=== PATIENT | female | born 1995 | race Two or more races ===

== ENCOUNTER → 2017-06-04 | Outpatient (REF) | payer BC ==
[~2017-06-04] MED LIST: ALLE180T33 PO; AZUR1TAB PO; CLAR10CA3 PO; EFFE37.527 PO; FLON0.054; FLOVENT INH; MUCI600T37 PO; ONETAB PO; TRAZO50TA PO; VENL150C43 PO; XARE15TA PO; atarax PO
[2017-06-04 18:51] LABS: MEAN CORPUSCULAR HEMOGLOBIN 27.6 pg (27.0-33.0); MEAN CORPUSCULAR VOLUME 81.1 fl (80.0-96.0); RED CELL DISTRIBUTION WIDTH 12.1 % (11.5-14.5); WHITE BLOOD COUNT 7.5 K/mm3 (4.0-10.0)
[2017-06-04 19:26] LABS: ALBUMIN 3.8 GM/DL (3.2-5.2); ALBUMIN/GLOBULIN RATIO 1.23 (1.00-1.93); ALKALINE PHOSPHATASE 94 U/L (45-117); ALT/SGPT 22 U/L (12-78); ANION GAP 10 MEQ/L (8-16); AST/SGOT 14 U/L (15-37); BILIRUBIN,TOTAL 0.4 MG/DL (0.2-1.0); BLOOD UREA NITROGEN 9 MG/DL (7-18); CALCIUM LEVEL 9.2 MG/DL (8.5-10.1); CARBON DIOXIDE LEVEL 27 MEQ/L (21-32); CHLORIDE LEVEL 103 MEQ/L (98-107); CREATININE FOR GFR 0.67 MG/DL (0.55-1.02); FREE T4 1.14 NG/DL (0.76-1.46); GLOMERULAR FILTRATION RATE > 60.0 (>60); GLUCOSE, FASTING 85 MG/DL (70-105); POTASSIUM SERUM 4.8 MEQ/L (3.5-5.1); SODIUM LEVEL 140 MEQ/L (136-145); TOTAL PROTEIN 6.9 GM/DL (6.4-8.2)
== END ==
LOC: M SFHCADAM 14:13
PROVIDERS: ATTEND Family Medicine
DX: F32.2 Major depressive disorder, single episode, severe without psychotic features (principal)

== ENCOUNTER 2017-07-28 13:33 | Inpatient (IN) | payer BC ==
[~2017-07-28] VITALS: Ht 160 cm; Wt 90.0 kg
[~2017-07-28 13:33] MED LIST changes: -ALLE180T33 PO; -EFFE37.527 PO; -TRAZO50TA PO; -VENL150C43 PO; -atarax PO
[2017-07-28] MEDS ORDERED: EFFE37.527 PO (13:48)
[2017-07-28 16:02] LABS: METHADONE URINE NEGATIVE (NEGATIVE)
[2017-07-28 16:03] LABS: MEAN CORPUSCULAR HEMOGLOBIN 28.3 pg (27.0-33.0); MEAN CORPUSCULAR HGB CONC 36.1 g/dl (32.0-36.5); MEAN CORPUSCULAR VOLUME 78.4 fl (80.0-96.0); RED CELL DISTRIBUTION WIDTH 11.7 % (11.5-14.5); WHITE BLOOD COUNT 9.3 K/mm3 (4.0-10.0)
[2017-07-28 16:11] LABS: ALBUMIN/GLOBULIN RATIO 1.18 (1.00-1.93); ALKALINE PHOSPHATASE 97 U/L (45-117); ALT/SGPT 26 U/L (12-78); ANION GAP 9 MEQ/L (8-16); AST/SGOT 18 U/L (15-37); BILIRUBIN,DIRECT 0.1 MG/DL (0.0-0.2); BILIRUBIN,TOTAL 0.4 MG/DL (0.2-1.0); BLOOD UREA NITROGEN 7 MG/DL (7-18); CALCIUM LEVEL 9.2 MG/DL (8.5-10.1); CARBON DIOXIDE LEVEL 26 MEQ/L (21-32); CHLORIDE LEVEL 108 MEQ/L (98-107); CREATININE FOR GFR 0.68 MG/DL (0.55-1.02); GLOMERULAR FILTRATION RATE > 60.0 (>60); GLUCOSE, FASTING 91 MG/DL (70-105); POTASSIUM SERUM 4.4 MEQ/L (3.5-5.1); SODIUM LEVEL 143 MEQ/L (136-145); TOTAL PROTEIN 7.4 GM/DL (6.4-8.2)
[2017-07-28] MEDS ORDERED: ALLE180T33 PO (18:56)
[2017-07-28] MEDS ORDERED: VENL150C43 PO (18:56)
[2017-07-28] MEDS ORDERED: ACETAMINOPHEN TAB 650MG DOSE (2X325MG) PO ONE (19:45)
[2017-07-28 21:30] VITALS: BP 123/82
[2017-07-28] MEDS ORDERED: ACETAMINOPHEN TAB 650MG DOSE (2X325MG) PO PRN (22:15)
[2017-07-28] MEDS ORDERED: MAALOX 30 ML SUSP *UDC PO PRN (22:15)
[2017-07-28] MEDS ORDERED: MOM 30ML SUSPENSION UDC PO PRN (22:15)
[2017-07-29 06:59] VITALS: BP 122/64
[2017-07-29] MEDS: FEXOFENADINE 60 MG TAB PO SCH (09:12)
[2017-07-29] MEDS: VENLAFAXINE **XR** 75MG CAPSULE PO SCH (09:13)
[2017-07-29] MEDS ORDERED: ALBUTEROL 90 MCG/ACT 8GM HFA INHALER INH PRN (10:00)
--- NOTE | 2017-07-29 10:02 | HPEPDOC ---
[facility] Medical History & Physical Date of Admission Jul 29, 2017 History and Physical PCP: Falguni LEONARDO ATTENDING: Dr. Rafael Ludwig HPI: 22 yo F admitted to [facility] for major depressive disorder, being medically examined today. No acute medical complaints today. Denies any fevers, chills, weakness, fatigue, MCGRAW, CP, SOB, cough, palpitations, abdominal pain, N/V/D or changes in bowel or bladder habits. 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 ROS: As noted in HPI, otherwise 11pt ROS of systems reviewed and remarkable only for LMP unknown per patient. PE: GEN: 22 yo F, appears stated age. Well-nourished, well developed. No acute distress. Alert and oriented x 3. Pleasant, interactive. HEENT: Normocephalic, atraumatic. Pupils are equal, round, and reactive to light. Extraocular movements are intact. No nystagmus appreciated. Sclera are nonicteric. Conjunctiva without injection. Nose midline. Nasal turbinates without bogginess. EACs both patent BL. TMs both visualized and frank with good cone of light, no bulging or erythema. No facial asymmetry. Moist mucous membranes. Dentition fair. Pharynx pink and moist, no cobblestoning. Neck supple , trachea midline. No lymphadenopathy or thyromegaly appreciated. CHEST: Regular rate and rhythm, +S1, +S2 LUNGS: Clear to auscultation bilaterally. No wheezes, rales, or rhonchi. Breathing appears symmetric and easy. Patient is speaking in full sentences. No accessory muscle use. ABD: Round, soft, non-tender, non-distended. +Bowel sounds throughout. No rebound or guarding. No costovertebral angle tenderness. EXT: Pulses 2+ bilaterally dorsalis pedis and radial. No lower extremity edema appreciated. SKIN: [place], dry, warm. Capillary refill <2sec. No rashes. NEURO: Alert and oriented x 3. Cranial nerves III-XII are intact. No focal deficits appreciated. EKG: pending. A&P: 22 yo F admitted to [facility] for major depressive disorder 1. Psych. Plan per Psychiatry. Obtain baseline EKG to assure the safety of psychiatric medications as they can prolong the QT interval. 2. Allergic rhinitis. Continue Katherine 180 mg by mouth daily. 3. History of allergy-induced asthma. Albuterol HFA 2 puffs every 4 hours as needed. 4. Follow up with PCP on discharge. 5. History of vitamin D deficiency. Recheck vitamin D level. 6. History of bilateral PE on OCP. 7. Add hCG to admission labs. 8. Staff member Coleen MCCARTY present throughout exam. Vital Signs Vital Signs Date Time Temp Pulse Resp B/P (MAP) Pulse Ox O2 Delivery O2 Flow Rate FiO2 07/29/17 06:59 97.5 75 16 122/64 (83) Room Air 07/28/17 21:07 98 Laboratory Data Labs 24H Laboratory Tests 2 07/28/17 15:20: Anion Gap 9, Glomerular Filtration Rate > 60.0, Calcium Level 9.2, Aspartate Amino Transf (AST/SGOT) 18, Alanine Aminotransferase (ALT/SGPT) 26, Alkaline Phosphatase 97, Total Bilirubin 0.4, Direct Bilirubin 0.1, Total Protein 7.4, Albumin 4.0, Albumin/Globulin Ratio 1.18, Thyroid Stimulating Hormone (TSH) 1.400, Salicylates Level < 1.7L, Urine Amphetamines Screen NEGATIVE, Urine Benzodiazepines Screen NEGATIVE, Urine Opiates Screen NEGATIVE, Urine Methadone Screen NEGATIVE, Acetaminophen Level < 2.0L, Urine Barbiturates Screen NEGATIVE , Urine Phencyclidine Screen NEGATIVE, Urine Cocaine Metabolite Screen NEGATIVE , Urine Cannabinoids Screen NEGATIVE, Ethyl Alcohol Level < 0.003 CBC/BMP Laboratory Tests 07/28/17 15:20 Red Blood Count 5.17, Mean Corpuscular Volume 78.4 L, Mean Corpuscular Hemoglobin 28.3, Mean Corpuscular Hemoglobin Concent 36.1, Red Cell Distribution Width 11.7 Home Medications Scheduled Fexofenadine Hydrochloride (Katherine Allergy) 180 Mg Tab, 180 MG PO DAILY Venlafaxine Hydrochloride (Venlafaxine HCl ER) 150 Mg Cap, 150 MG PO DAILY Allergies Coded Allergies: Penicillins (Unverified Allergy, Unknown, RASH, 07/28/17) Penicillins Cross Reactors (Unverified Allergy, Unknown, RASH, 07/28/17) Mary Mendez Jul 29, 2017 10:02
[2017-07-29 10:54] LABS: CONTROL LINE HCG INT CTR LINE PRESENT
--- NOTE | 2017-07-29 11:42 | MHHPEPDOC ---
[facility] History & Physical History and Physical DATE OF ADMISSION: Jul 28, 2017 at 18:24 LEGAL STATUS AT ADMISSION: 9.39 CHIEF COMPLAINT: none, shrugs shoulders HISTORY OF THE PRESENT ILLNESS: Patient is a 22-year-old female, who presented to Dr. Palencia's office yesterday at [facility]. She stated 3 weeks ago she cut herself on her stomach and arms and had thoughts of suicide. He called the ambulance and she was admitted. She was not forthcoming in the ED with information about herself. This is her first psychiatric admission. On interview today she is very guarded and withholding information. Davey not answer questions. Answers with "it depends" and shrugs her shoulders saying "I don't know". Talks to the wall not the press writer. Starts to cry when asked about her mother. States her mother is mad at her for being here. Refuses to sign GABRIELE so press writer may contact mother. Pt asks for discharge. Crying and say's "I want to go home". Explained to pt that she is in need of help if she is hurting herself and we want to do everything we can to help her. We want her to be safe and we will need much more information to develop a safe discharge plan for her. That by not talking she is actually making the process of proceeding to discharge longer. She cries and turns away saying "I want to go home". Of importance that pt would provide is information that she was raised by her grandparents until the age of 7. She says her mother was in and then joined the [employer]. Mother obviously left Adrianne in the care of her parents. No information on father. Adrianne oneil has 2 brothers and 1 sister. She is the oldest. She graduated . Obtained a BS degree in Biology at [employer] and is currently in nursing school at [employer]. 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 She denies having any friends. Denies having a Boyfriend. Says she enjoys writing poems. In terms of insight into her distress she says she does not like herself and this includes everything about herself. She thinks she is ugly. She wants to change everything about herself. She says she cuts herself because "I just get upset". PSYCHIATRIC REVIEW OF SYSTEMS: Affective: crying Anxiety: high Trauma: denies Psychosis: denies Personally: guarded, withholding PAST PSYCHIATRIC HISTORY: Prior Psychiatric Disorder: needs further assessment Outpatient Treatment: Dr.Kahn Rupert Suicidal/Self injurious: cutting self since age 11, reports it has happened 4 times. Psychotropic Medication History: Effexor ALLERGIES: Please see below. FAMILY PSYCHIATRIC HISTORY: denies SOCIAL HISTORY: Early Relations/development: raised by Grand parents while mother served in the Army, no information provided on Father. Sibling order: Oldest of 4 Paternal relationships: mom and step-dad-"mom mad because I am in here and I should be in school and no one to care for my cat". 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 PAST MEDICAL/SURGICAL HISTORY: PMHx: Allergic rhinitis History of allergy-induced asthma Vitamin D deficiency Bilateral PE on OCP 11/22 PSHX: [place] teeth extraction EKG: pending. A&P: 22 yo F admitted to [facility] for major depressive disorder 1. Psych. Plan per Psychiatry. Obtain baseline EKG to assure the safety of psychiatric medications as they can prolong the QT interval. 2. Allergic rhinitis. Continue Katherine 180 mg by mouth daily. 3. History of allergy-induced asthma. Albuterol HFA 2 puffs every 4 hours as needed. 4. Follow up with PCP on discharge. 5. History of vitamin D deficiency. Recheck vitamin D level. 6. History of bilateral PE on OCP. 7. Add hCG to admission labs. VITAL SIGNS: Temperature 97.5 pulse respiratory rate 75, blood pressure 122/64 , pulse oximetry 98% on room air. MENTAL STATUS EXAMINATION: General appearance: Patient is a 22-year old female, who is over weight, dressed in hospital attire, shoulder length dark hair, fair complexion, crying, poor eye contact, uncooperative with questions. Speech: spontaneous, monosyllables. Thought processes: linear, no thought disorder , no delusions, FOI or IOR Thought content: appropriate Abstract reasoning and computation: good. Description of associations: fair. Description of abnormal or psychotic thoughts: denies suicidal thoughts at this time, no psychotic symptoms, pt refuses to provide meaningful information, will not respond to questions, says "I don't know". Judgment: poor Insight: poor. Orientation: oriented to place, time, person and surroundings. Recent and remote memory: unclear as pt is evasive. Attention span and concentration: appears good. Fund of knowledge: Full Mood: depressed Affect: congruent DIAGNOSES: Depressive disorder unspecified self-mutilation ASSESSMENT: pt reports sleep varies depending on work schedule. She will get 2 hours some nights, 8 hours or 12 hours., pt reports good energy, reports fluctuation in appetite without weight changes. Pt denies psychomotor changes and none observed. Pt would not cooperate with any further questioning. PROBLEM LIST: 1. risk for self-injury 2. depression 3. ineffective coping INITIAL TREATMENT PLAN: 1. Patient was admitted on a 9.39 2. Complete history was obtained. 3. With patients permission, family will be contacted and database will be expanded. 4. Patients medication regimen will be reviewed and changed accordingly. 5. Patient will be provided with protected environment. 6. Patient will be treated with individual, group, and milieu therapies. 7. Patient will receive supportive psych-education. 8. Discharge planning will commence immediately. 9. Outpatient follow-up treatment will be strongly recommended. 10. The initial treatment plan will focus initially on: * see problem list ESTIMATED LENGTH OF STAY: 7-10 DAYS. TIME SPENT COUNSELING AND COORDINATING INITIAL CARE: 50 minutes. Laboratory Data 24H Labs Laboratory Tests 2 07/28/17 15:20: Anion Gap 9, Glomerular Filtration Rate > 60.0, Calcium Level 9.2, Aspartate Amino Transf (AST/SGOT) 18, Alanine Aminotransferase (ALT/SGPT) 26, Alkaline Phosphatase 97, Total Bilirubin 0.4, Direct Bilirubin 0.1, Total Protein 7.4, Albumin 4.0, Albumin/Globulin Ratio 1.18, 25-Hydroxy Vitamin D Total 15.1L, Thyroid Stimulating Hormone (TSH) 1.400, Human Chorionic Gonadotropin, Qual NEGATIVE, Salicylates Level < 1.7L, Urine Amphetamines Screen NEGATIVE, Urine Benzodiazepines Screen NEGATIVE, Urine Opiates Screen NEGATIVE, Urine Methadone Screen NEGATIVE, Acetaminophen Level < 2.0L, Urine Barbiturates Screen NEGATIVE , Urine Phencyclidine Screen NEGATIVE, Urine Cocaine Metabolite Screen NEGATIVE , Urine Cannabinoids Screen NEGATIVE, Ethyl Alcohol Level < 0.003 CBC/BMP Laboratory Tests 07/28/17 15:20 Red Blood Count 5.17, Mean Corpuscular Volume 78.4 L, Mean Corpuscular Hemoglobin 28.3, Mean Corpuscular Hemoglobin Concent 36.1, Red Cell Distribution Width 11.7 Medications Scheduled Fexofenadine Hydrochloride (Katherine Allergy) 180 Mg Tab, 180 MG PO DAILY, ( Reported) Venlafaxine Hydrochloride (Venlafaxine HCl ER) 150 Mg Cap, 150 MG PO DAILY, ( Reported) Allergies Coded Allergies: Penicillins (Unverified Allergy, Unknown, RASH, 07/28/17) Penicillins Cross Reactors (Unverified Allergy, Unknown, RASH, 07/28/17) Rafaela Darby Jul 29, 2017 11:42
[2017-07-29] MEDS: VITAMIN D 1,000 INTERNATIONAL UNITS TABLET PO SCH (13:00)
[2017-07-29 18:00] VITALS: BP 117/76
--- NOTE | 2017-07-29 19:57 | ECGEPIP ---
Stationary ECG Study [facility] Test Date: 2017-07-29 Pat Name: DORIS DENIS Department: Room: [place] [address] Gender: F Database Programmer Analyst: CARY : 1995 Requested By: Mary Mendez Order Number: [id number] Reading MD: Damon Owusu Measurements Intervals [place] Rate: 76 P: 38 IA: 132 QRS: -20 QRSD: 97 T: 30 QT: 382 QTc: 430 Interpretive Statements Normal sinus rhythm with sinus arrhythmia Leftward axis No significant change when compared to prior tracing of 11/20/2014 Electronically Signed On 07-29-2017 19:56:52 EDT by Damon Owusu
[2017-07-29] MEDS: traZODone 50 MG TAB PO PRN (21:52)
[2017-07-30 06:00] VITALS: BP 112/66
[2017-07-30] MEDS: VITAMIN D 1,000 INTERNATIONAL UNITS TABLET PO SCH (08:33)
[2017-07-30] MEDS: FEXOFENADINE 60 MG TAB PO SCH (08:33)
[2017-07-30] MEDS: VENLAFAXINE **XR** 75MG CAPSULE PO SCH (08:34)
--- NOTE | 2017-07-30 11:01 | MHIPNPDOC ---
[facility] Progress Note Progress Note DATE OF SERVICE: 07/30/17 HISTORY: day 3 of admission for SI VITAL SIGNS: See below. NEW TEST RESULTS: na CURRENT MEDICATIONS: See below. MENTAL STATUS EXAMINATION: General appearance: Patient is a 22-year old female, who is over weight, dressed in hospital attire, shoulder length dark hair, fair complexion, good eye contact, cooperative. Speech: spontaneous, clear Thought processes: linear, no thought disorder , no delusions, FOI or IOR Thought content: appropriate Abstract reasoning and computation: good. Description of associations: good Description of abnormal or psychotic thoughts: denies suicidal thoughts at this time, no psychotic symptoms. Judgment: fair Insight: good Orientation: oriented to place, time, person and surroundings. Recent and remote memory: intact Attention span and concentration: good. Fund of knowledge: Full Mood: less depressed Affect: congruent DIAGNOSES: Depressive disorder unspecified self-mutilation ASSESSMENT:pt appears to have significant issues with low self-esteem. she appears willing to work on these issues both here and as an outpatient. she is very intelligent and ambitious and would benefit from counseling which she is scheduled for at [facility]. She is living by herself in [place] as Mom and family have relocated to [place]. She lives and works here and is able to identify a few supports in the area. We will contact her friend Belle for collateral information. Pt states she uses trazodone for sleep and it is effective for her. Pt scores depression as a 3/10 and anxiety as a 2/10 10 is the worse. MANAGEMENT PLAN: Effexor raised 3 weeks ago so needs additional time to reach maximum benefit. Will monitor safety, work on healthy coping skills and how to manage stress without self harm. pt is assigned homework by writer producer. She must identify 2 things she likes about herself. 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 She is also to identify 2 coping skills she can used when thoughts of self-harm occur to keep her safe. If she does well over the weekend we will plan discharge on Wednesday so she can get back to school and work. Pt has had contact with her nursing program about her hospitalization. We also supplied a note for her employer. Discharge meeting 10:30 on Wednesday with discharge to follow. TIME SPENT: 25 minutes. Vital Signs Vital Signs Date Time Temp Pulse Resp B/P (MAP) Pulse Ox O2 Delivery O2 Flow Rate FiO2 07/30/17 06:00 97.6 80 18 112/66 (81) 07/29/17 06:59 Room Air 07/28/17 21:07 98 Current Medications Current Medications Acetaminophen (Tylenol Tab) 650 mg Q6HP PRN PO HEADACHE or DISCOMFORT; Start at 22:15; Stop 08/27/17 at 22:14 Al Hydrox/Mg Hydrox/Simethicone (Mylanta) 30 ml Q4HP PRN PO HEARTBURN/ INDIGESTION; Start 07/28/17 at 22:15; Stop 08/27/17 at 22:14 Albuterol Sulfate (Proventil, Ventolin Hfa) 2 puff Q4HP PRN INH SHORTNESS OF BREATH; Start 07/29/17 at 10:00; Stop 08/28/17 at 09:59 Fexofenadine HCl (Katherine) 180 mg DAILY PO Last administered on 07/30/17 08:33 ; Start 07/29/17 at 09:00; Stop 08/28/17 at 08:59 Home Med (Med Rec Complete!) ASDIRECTED XX ; Start 07/28/17 at 19:00; Stop at 19:01; Status DC Magnesium Hydroxide (Milk Of Magnesia) 30 ml DAILYPRN PRN PO CONSTIPATION; Start 07/28/17 at 22:15; Stop 08/27/17 at 22:14 Trazodone HCl (Desyrel) 50 mg QHSP PRN PO INSOMNIA Last administered on 21:52; Start 07/28/17 at 22:15; Stop 08/27/17 at 22:14 Venlafaxine HCl (Effexor Xr) 150 mg DAILY PO Last administered on 08:34; Start 07/29/17 at 09:00; Stop 08/28/17 at 08:59 Vitamin D (Vitamin D) 2,000 units DAILY PO Last administered on 07/30/17 08:33 ; Start 07/29/17 at 09:00; Stop 08/28/17 at 08:59 Allergies Coded Allergies: Penicillins (Unverified Allergy, Unknown, RASH, 07/28/17) Penicillins Cross Reactors (Unverified Allergy, Unknown, RASH, 07/28/17) Rafaela Darby Jul 30, 2017 11:01
[2017-07-30 11:56] VITALS: BP 99/64
[2017-07-30 18:23] VITALS: BP 118/64
[2017-07-30] MEDS: traZODone 50 MG TAB PO PRN (22:49)
[2017-07-31 07:07] VITALS: BP 118/71
[2017-07-31] MEDS: VENLAFAXINE **XR** 75MG CAPSULE PO SCH (08:11)
[2017-07-31] MEDS: VITAMIN D 1,000 INTERNATIONAL UNITS TABLET PO SCH (08:11)
[2017-07-31] MEDS: FEXOFENADINE 60 MG TAB PO SCH (08:11)
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
[2017-07-31 18:17] VITALS: BP 102/57
[2017-07-31] MEDS: traZODone 50 MG TAB PO PRN (22:37)
[2017-08-01] MEDS: VITAMIN D 1,000 INTERNATIONAL UNITS TABLET PO SCH (08:14)
[2017-08-01] MEDS: VENLAFAXINE **XR** 75MG CAPSULE PO SCH (08:14)
[2017-08-01] MEDS: FEXOFENADINE 60 MG TAB PO SCH (08:14)
--- NOTE | 2017-08-01 13:23 | MHIPN ---
DATE: 08/01/2017 Ms. Christianson comes in with a slightly inappropriate smile, and I discussed her history of cutting. She stated she relied on it when upset and was copying other people. She continues to state she has impulse problems and included starting smoking. Her insight at this point seems somewhat limited compared to her dramatic self-destructive behavior. MENTAL STATUS: Speech is normal. No disturbance of thought process. No loose associations. No psychotic thoughts. Judgment and insight seem poor. Orientation in three spheres is present. No difficulties with recent or remote memory. Attention and concentration are good. No disturbance of language. Full fund of knowledge. Mood is pleasant. Affect is slightly inappropriate compared to her situation. IMPRESSION: Depression, not otherwise specified. Suggest evaluation of her IQ and continue treatment as per Rafaela Darby.
[2017-08-01 18:21] VITALS: BP 111/57
[2017-08-01] MEDS: traZODone 50 MG TAB PO PRN (23:05)
[2017-08-02 06:39] VITALS: BP 111/56
[2017-08-02] MEDS: VENLAFAXINE **XR** 75MG CAPSULE PO SCH (08:11)
[2017-08-02] MEDS: VITAMIN D 1,000 INTERNATIONAL UNITS TABLET PO SCH (08:11)
[2017-08-02] MEDS: FEXOFENADINE 60 MG TAB PO SCH (08:11)
[2017-08-02] MEDS ORDERED: hydrOXYzine 25 MG TAB PO PRN (09:15)
[2017-08-02] MEDS ORDERED: TRAZO50TA PO (09:18)
[2017-08-02] MEDS ORDERED: atarax PO (09:18)
--- NOTE | 2017-08-02 13:36 | MHDSPDOC ---
[facility] Discharge Summary Discharge Summary DATE OF ADMISSION: Jul 28, 2017 at 18:24 DATE OF DISCHARGE: Aug 02, 2017 at 11:58 DISCHARGE DIAGNOSES: Depressive disorder unspecified self-mutilation REASON FOR ADMISSION: Pt presented to her first outpatient appointment and told the doctor she cut herself in several places 3 weeks ago. She was unable to contract for safety and was sent here. CONSULTANTS INVOLVED: na TREATMENT AND PROGRESS ON THE UNIT : Initially pt would not provide any information. She just shrugged her shoulders and answered "I don't know". She wanted immediate discharge. When she realized that would not happen she started crying and refused to offer any information. Her intake process was delayed due to this. The following day she was more cooperative and shared what her thoughts were that were causing her so much distress. HOSPITAL COURSE: Pt suffers from a lack of self esteem and a distorted body image. She views herself as ugly when she is not. She is a bit overweight but certainly not ugly. She has obtained a Bachelor's in Science in Biology from [employer] and is pursing a nursing education at [employer]. She lives alone with her cat and works 2 jobs. 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 She fears she may have to file bankruptcy due to poor planning, budgeting an impulse buying. pt Slept well most nights and ate at most meals. No allergic reactions to medications. She participated in therapy groups and did well. She was able to provide a list of coping skills prior to discharge and she could identify things she actually liked about herself. She received a good deal of support and encouragement. She engaged appropriately with peers. DISCHARGE ASSESSMENT: Pt was not longer having thoughts of self harm prior to leaving the hospital. She could also tell us what she would do instead of harming herself if and when that thought returns to her. She has a copy of that list for herself. She has been in contact via phone with her Mother in [place] who is supportive of her. She states she "came out" as bisexual to her mother over the phone while her and her mother was accepting of her and loves her. This seemed to be comforting to Adrianne. She is aware of her follow up appts and is committed to following up as scheduled. She will take her medication as prescribed. No substance abuse concerns. MENTAL STATUS EXAMINATION ON DISCHARGE: General appearance: Patient is a 22-year old female, who is over weight, dressed in street clothes, shoulder length dark hair, fair complexion, good eye contact, smiling Speech: spontaneous, monosyllables. Thought processes: linear, goal directed Thought content: appropriate Abstract reasoning and computation: good. Description of associations: fair. Description of abnormal or psychotic thoughts: denies suicidal thoughts at this time, no psychotic symptoms. Judgment: fair Insight: fair Orientation: oriented to place, time, person and surroundings. Recent and remote memory: unclear as pt is evasive. Attention span and concentration: appears good. Fund of knowledge: Full Mood: euthymic Affect: congruent MEDICATIONS ON DISCHARGE: - Effexor for depression & Anxiety. -trazodone for insomnia. - hydroxyzine for anxiety. PLAN/FOLLOWUP ARRANGEMENTS: [facility] The amount of time spent in the coordination of care for this patient was approximately 30 minutes. Vital Signs/I&Os Vital Signs Date Time Temp Pulse Resp B/P (MAP) Pulse Ox O2 Delivery O2 Flow Rate FiO2 08/02/17 06:39 97.7 75 18 111/56 (74) Room Air 07/28/17 21:07 98 Medications Scheduled Fexofenadine Hydrochloride (Katherine Allergy) 180 Mg Tab, 180 MG PO DAILY, ( Reported) Venlafaxine Hydrochloride (Venlafaxine HCl ER) 150 Mg Cap, 150 MG PO DAILY, ( Reported) Scheduled PRN Trazodone HCl (Trazodone HCl) 50 Mg Tab, 50 MG PO QHSP PRN for INSOMNIA for 7 Days, #7 take when needed for insomnia [atarax] , 25 MG PO Q6HP PRN for ANXIETY for 7 Days, #28 Allergies Coded Allergies: Penicillins (Unverified Allergy, Unknown, RASH, 07/28/17) Penicillins Cross Reactors (Unverified Allergy, Unknown, RASH, 07/28/17) Rafaela Darby Aug 02, 2017 13:36
== END 2017-08-02 11:58 | disposition home or self-care (01) | DRG 754 ==
LOC: M ED 13:33 → M ED INP 18:24 → M PSY 21:27
PROVIDERS: ADMIT Psychiatry & Neurology Psychiatry; ATTEND Psychiatry & Neurology Child & Adolescent Psychiatry
DX: F32.9 Major depressive disorder, single episode, unspecified (principal); E55.9 Vitamin D deficiency, unspecified; G47.00 Insomnia, unspecified; Z79.899 Other long term (current) drug therapy; Z88.0 Allergy status to penicillin; J45.909 Unspecified asthma, uncomplicated; Z86.711 Personal history of pulmonary embolism

== ENCOUNTER 2017-08-26 13:09 | Emergency (ER) | payer BC ==
[~2017-08-26] VITALS: Ht 160 cm; Wt 90.0 kg
[~2017-08-26 13:09] MED LIST changes: +ALLE180T33 PO; +EFFE37.527 PO; +TRAZO50TA PO; +VENL150C43 PO; +atarax PO
[2017-08-26 14:40] LABS: MEAN CORPUSCULAR HGB CONC 33.3 g/dl (32.0-36.5); MEAN CORPUSCULAR VOLUME 80.9 fl (80.0-96.0); PLATELET COUNT, AUTOMATED 266 10^3/uL (150-450); RED CELL DISTRIBUTION WIDTH 12.2 % (11.5-14.5); WHITE BLOOD COUNT 10.6 10^3/uL (4.0-10.0)
[2017-08-26 15:03] LABS: CONTROL LINE HCG INT CTR LINE PRESENT
[2017-08-26 15:20] LABS: ALBUMIN 3.9 GM/DL (3.2-5.2); ALBUMIN/GLOBULIN RATIO 1.26 (1.00-1.93); ALKALINE PHOSPHATASE 90 U/L (45-117); ALT/SGPT 26 U/L (12-78); ANION GAP 5 MEQ/L (8-16); AST/SGOT 12 U/L (15-37); BILIRUBIN,DIRECT 0.1 MG/DL (0.0-0.2); BILIRUBIN,TOTAL 0.3 MG/DL (0.2-1.0); BLOOD UREA NITROGEN 8 MG/DL (7-18); CALCIUM LEVEL 8.9 MG/DL (8.5-10.1); CARBON DIOXIDE LEVEL 27 MEQ/L (21-32); CHLORIDE LEVEL 108 MEQ/L (98-107); CREATININE FOR GFR 0.67 MG/DL (0.55-1.02); GLOMERULAR FILTRATION RATE > 60.0 (>60); GLUCOSE, FASTING 87 MG/DL (70-105); POTASSIUM SERUM 4.4 MEQ/L (3.5-5.1); SODIUM LEVEL 140 MEQ/L (136-145)
[2017-08-26 16:00] VITALS: BP 143/72
[2017-08-26 16:11] LABS: METHADONE URINE NEGATIVE (NEGATIVE)
== END 2017-08-26 16:01 | disposition home or self-care (01) ==
LOC: M ED 13:09
DX: S90.812A Abrasion, left foot, initial encounter (principal); X78.9XXA Intentional self-harm by unspecified sharp object, initial encounter; Y92.89 Other specified places as the place of occurrence of the external cause; Y93.89 Activity, other specified; Y99.8 Other external cause status; F99 Mental disorder, not otherwise specified; Z79.899 Other long term (current) drug therapy; Z88.0 Allergy status to penicillin
CPT/HCPCS: 36415; 80048; 80076; 80307; 84443; 84703; 85027; 99284; G0480

== ENCOUNTER → 2017-09-01 | Outpatient (REF) | payer BC | LOC: M SFHCADAM 09:33 | PROVIDERS: ATTEND Family Medicine | DX: R30.0 Dysuria (principal) ==

== ENCOUNTER 2017-10-25 19:33 | Emergency (ER) | payer BC ==
[~2017-10-25] VITALS: Ht 160 cm; Wt 90.9 kg
[2017-10-25 20:35] LABS: MEAN CORPUSCULAR HGB CONC 33.4 g/dl (32.0-36.5); MEAN CORPUSCULAR VOLUME 80.8 fl (80.0-96.0); PLATELET COUNT, AUTOMATED 269 10^3/uL (150-450); RED CELL DISTRIBUTION WIDTH 12.1 % (11.5-14.5); WHITE BLOOD COUNT 9.4 10^3/uL (4.0-10.0)
[2017-10-25 20:51] LABS: CONTROL LINE HCG INT CTR LINE PRESENT
[2017-10-25 20:59] LABS: METHADONE URINE NEGATIVE (NEGATIVE)
[2017-10-25 21:08] LABS: ALBUMIN 3.7 GM/DL (3.2-5.2); ALBUMIN/GLOBULIN RATIO 1.12 (1.00-1.93); ALKALINE PHOSPHATASE 88 U/L (45-117); ALT/SGPT 22 U/L (12-78); ANION GAP 8 MEQ/L (8-16); AST/SGOT 13 U/L (7-37); BILIRUBIN,DIRECT < 0.1 MG/DL (0.0-0.2); BILIRUBIN,TOTAL 0.2 MG/DL (0.2-1.0); BLOOD UREA NITROGEN 7 MG/DL (7-18); CALCIUM LEVEL 8.7 MG/DL (8.5-10.1); CARBON DIOXIDE LEVEL 25 MEQ/L (21-32); CHLORIDE LEVEL 109 MEQ/L (98-107); CREATININE FOR GFR 0.78 MG/DL (0.55-1.02); GLOMERULAR FILTRATION RATE > 60.0 (>60); GLUCOSE, FASTING 112 MG/DL (70-105); POTASSIUM SERUM 3.9 MEQ/L (3.5-5.1); SODIUM LEVEL 142 MEQ/L (136-145)
[2017-10-25 22:06] VITALS: BP 132/87
== END 2017-10-25 22:08 | disposition home or self-care (01) ==
LOC: M ED 19:33
DX: R46.89 Other symptoms and signs involving appearance and behavior (principal)
CPT/HCPCS: 80048; 80076; 80307; 84443; 84703; 85027; 99284; G0480

== ENCOUNTER → 2018-04-22 | Outpatient (REF) | payer BC ==
[2018-04-22 19:38] LABS: APPEARANCE, URINE CLEAR (CLEAR); BACTERIA, URINE AUTO NEGATIVE (NEGATIVE); BILIRUBIN, URINE AUTO NEGATIVE (NEGATIVE); BLOOD, URINE BLOOD NEGATIVE (NEGATIVE); COLOR, URINE STRAW (YELLOW); GLUCOSE, URINE (UA) AUTO NEGATIVE (NEGATIVE); KETONE, URINE AUTO NEGATIVE (NEGATIVE); LEUKOCYTE ESTERASE, URINE AUTO NEGATIVE (NEGATIVE); NITRITE, URINE AUTO NEGATIVE (NEGATIVE); PROTEIN, URINE AUTO NEGATIVE (NEGATIVE); RBC, URINE AUTO 1 /HPF (0-3); SPECIFIC GRAVITY URINE AUTO 1.004 (1.002-1.035); SQUAMOUS EPITHELIAL CELL UR AU 0 /HPF (0-6); UROBILINOGEN, URINE AUTO 0.2 mg/dL (0.0-2.0); WBC, URINE AUTO 0 /HPF (0-3)
[2018-04-22 20:30] LABS: HIV 1&2 SCREEN CENTAUR NEGATIVE (NEGATIVE)
[2018-04-22 22:33] LABS: CHLAMYDIA DNA AMPLIFICATION NEGATIVE (NEGATIVE); GC DNA AMPLIFICATION NEGATIVE (NEGATIVE)
[2018-04-26 14:16] LABS: HPV HYBRID CAPTURE II Positive (Negative)
== END ==
LOC: M SFHCADAM 11:59
DX: R30.0 Dysuria (principal); Z72.51 High risk heterosexual behavior; N92.6 Irregular menstruation, unspecified
CPT/HCPCS: 81001

== ENCOUNTER → 2019-04-13 | Outpatient (REF) | payer BC ==
[~2019-04-13] MED LIST changes: +EFFE37.5 PO; -EFFE37.527 PO; +TRAZ1TAB10 PO; -TRAZO50TA PO
[2019-04-13 16:24] LABS: HEMATOCRIT 43.2 % (36.0-47.0); MEAN CORPUSCULAR HEMOGLOBIN 26.6 pg (27.0-33.0); MEAN CORPUSCULAR HGB CONC 32.4 g/dl (32.0-36.5); PLATELET COUNT, AUTOMATED 278 10^3/uL (150-450); RED BLOOD COUNT 5.27 10^6/uL (4.00-5.40); WHITE BLOOD COUNT 11.4 10^3/uL (4.0-10.0)
[2019-04-13 16:36] LABS: ALT/SGPT 34 U/L (12-78); BILIRUBIN,TOTAL 0.3 MG/DL (0.2-1.0); BLOOD UREA NITROGEN 7 MG/DL (7-18); CALCIUM LEVEL 9.5 MG/DL (8.5-10.1); CARBON DIOXIDE LEVEL 26 MEQ/L (21-32); CHLORIDE LEVEL 109 MEQ/L (98-107); CREATININE FOR GFR 0.67 MG/DL (0.55-1.30); FREE T4 1.28 NG/DL (0.76-1.46); GLOMERULAR FILTRATION RATE > 60.0 (>60); GLUCOSE, FASTING 83 MG/DL (70-100); POTASSIUM SERUM 4.9 MEQ/L (3.5-5.1); SODIUM LEVEL 141 MEQ/L (136-145); THYROID STIMULATING HORMONE 0.941 uIU/ML (0.358-3.740); TOTAL PROTEIN 7.3 GM/DL (6.4-8.2)
== END ==
LOC: M SFHCADAM 13:49
PROVIDERS: ATTEND Physician Assistant
DX: R53.82 Chronic fatigue, unspecified (principal); F32.2 Major depressive disorder, single episode, severe without psychotic features

== ENCOUNTER → 2020-01-18 | Outpatient (CLI) | payer BC ==
--- NOTE | 2020-01-19 08:36 | REP ---
FIRST TRIMESTER OBSTETRICAL ULTRASOUND: CLINICAL: Dating and viability. TECHNIQUE: Transabdominal and transvaginal first trimester obstetrical ultrasound with color Doppler evaluation. FINDINGS: Ultrasound examination demonstrates a single live early intrauterine . Gestational sac with yolk sac and pole identified. [place]-rump length of 5 mm corresponds to 6 weeks 1 day gestational age with estimated date of delivery 09/11/2020. heart rate equals 122 beats per minute. No gross abnormalities are identified. Bilateral maternal ovaries are normal in appearance and vascularity without torsion. IMPRESSION: Single live early intrauterine at 6 weeks 1 day gestational age. Complete anatomical assessment should be performed at 19-20 weeks. Electronically Signed by Silvestre Gaines MD 01/22/2020 07:38 P
== END ==
LOC: M RAD 12:29
PROVIDERS: ATTEND Physician Assistant
DX: Z32.01 Encounter for pregnancy test, result positive (principal)

== ENCOUNTER → 2020-03-02 | Outpatient (REF) | payer BC | LOC: M LAB REF 23:25 | PROVIDERS: ATTEND Physician Assistant | DX: R50.9 Fever, unspecified (principal) ==

== ENCOUNTER → 2020-05-02 | Outpatient (CLI) | payer BC ==
[~2020-05-02] MED LIST changes: +CONC36TA4; +SERT50TA29; +ZALE10CA
[2020-05-02 12:10] LABS: BASO % 0.4 % (0.0-1.0); EOS # 0.1 10^3/uL (0.0-0.5); EOS % 1.6 % (0.0-3.0); HEMATOCRIT 39.4 % (36.0-47.0); LYMPH # 2.6 10^3/uL (1.5-5.0); LYMPH % 34.9 % (24.0-44.0); MEAN CORPUSCULAR HEMOGLOBIN 27.1 pg (27.0-33.0); MEAN CORPUSCULAR VOLUME 82.1 fl (80.0-96.0); MONO # 0.7 10^3/uL (0.0-0.8); MONO % 9.9 % (0.0-5.0); NEUTROPHILS # 3.9 10^3/uL (1.5-8.5); NEUTROPHILS % 52.9 % (36.0-66.0); PLATELET COUNT, AUTOMATED 198 10^3/uL (150-450); WHITE BLOOD COUNT 7.5 10^3/uL (4.0-10.0)
[2020-05-02 12:18] LABS: ALBUMIN 3.4 GM/DL (3.2-5.2); ALT/SGPT 31 U/L (12-78); BILIRUBIN,DIRECT 0.1 MG/DL (0.0-0.2); BILIRUBIN,TOTAL 0.4 MG/DL (0.2-1.0); BLOOD UREA NITROGEN 8 MG/DL (7-18); CARBON DIOXIDE LEVEL 26 MEQ/L (21-32); CHLORIDE LEVEL 109 MEQ/L (98-107); CHOLESTEROL LEVEL 154 MG/DL (<200); CHOLESTEROL RISK RATIO 3.347 (<5); CREATININE FOR GFR 0.66 MG/DL (0.55-1.30); GLOMERULAR FILTRATION RATE > 60.0 (>60); GLUCOSE, FASTING 80 MG/DL (70-100); HDL CHOLESTEROL 46 MG/DL (>40); LDL CHOLESTEROL 91 MG/DL (<100); NON-HDL-C 108 MG/DL; POTASSIUM SERUM 4.5 MEQ/L (3.5-5.1); SODIUM LEVEL 140 MEQ/L (136-145); TOTAL PROTEIN 6.5 GM/DL (6.4-8.2); TRIGLYCERIDES LEVEL 84 MG/DL (<150)
[2020-05-02 13:29] LABS: HEMOGLOBIN A1c 5.6 %
== END ==
LOC: M PLALAB 10:01
PROVIDERS: ATTEND Psychiatry & Neurology Psychiatry
DX: F33.1 Major depressive disorder, recurrent, moderate (principal); F60.3 Borderline personality disorder; F43.10 Post-traumatic stress disorder, unspecified; F90.2 Attention-deficit hyperactivity disorder, combined type

== ENCOUNTER 2020-09-03 07:39 | Emergency (ER) | payer BC ==
[~2020-09-03] VITALS: Ht 160 cm; Wt 96.4 kg
[2020-09-03 07:39] VITALS: BP 126/75
[~2020-09-03 07:39] MED LIST changes: -CONC36TA4; -SERT50TA29; -ZALE10CA
[2020-09-03] MEDS ORDERED: SERT50TA29 (07:47)
[2020-09-03] MEDS ORDERED: CONC36TA4 (07:47)
[2020-09-03] MEDS ORDERED: ZALE10CA (07:47)
== END 2020-09-03 08:17 | disposition home or self-care (01) ==
LOC: M ED 07:39
DX: N75.1 Abscess of Bartholin's gland (principal); F17.210 Nicotine dependence, cigarettes, uncomplicated

== ENCOUNTER → 2020-12-26 | Outpatient (CLI) | payer BC ==
[~2020-12-26] MED LIST changes: +CONC36TA4; +SERT50TA29; +ZALE10CA
[2020-12-26 13:54] LABS: BASO # 0.1 10^3/uL (0.0-0.2); BASO % 0.5 % (0.0-1.0); EOS # 0.1 10^3/uL (0.0-0.5); EOS % 0.9 % (0.0-3.0); HEMATOCRIT 39.9 % (36.0-47.0); LYMPH # 2.5 10^3/uL (1.5-5.0); LYMPH % 23.1 % (24.0-44.0); MEAN CORPUSCULAR HEMOGLOBIN 27.1 pg (27.0-33.0); MEAN CORPUSCULAR HGB CONC 32.6 g/dl (32.0-36.5); MEAN CORPUSCULAR VOLUME 83.3 fl (80.0-96.0); MONO % 8.7 % (2.0-8.0); NEUTROPHILS # 7.3 10^3/uL (1.5-8.5); NEUTROPHILS % 66.3 % (36.0-66.0); PLATELET COUNT, AUTOMATED 232 10^3/uL (150-450); RED BLOOD COUNT 4.79 10^6/uL (4.00-5.40)
[2020-12-26 14:21] LABS: ALBUMIN 3.6 GM/DL (3.2-5.2); ALT/SGPT 35 U/L (12-78); BILIRUBIN,DIRECT < 0.1 MG/DL (0.0-0.2); BILIRUBIN,TOTAL 0.2 MG/DL (0.2-1.0); BLOOD UREA NITROGEN 7 MG/DL (7-18); CALCIUM LEVEL 9.2 MG/DL (8.5-10.1); CARBON DIOXIDE LEVEL 25 MEQ/L (21-32); CHLORIDE LEVEL 109 MEQ/L (98-107); CHOLESTEROL LEVEL 149 MG/DL (<200); CREATININE FOR GFR 0.81 MG/DL (0.55-1.30); GLOMERULAR FILTRATION RATE > 60.0 (>60); GLUCOSE, FASTING 98 MG/DL (70-100); HCG, SERUM QUANTITATIVE < 1.0 MIU/ML; HDL CHOLESTEROL 49 MG/DL (>40); HEMOGLOBIN A1c 5.5 %; LDL CHOLESTEROL 80 MG/DL (<100); NON-HDL-C 100 MG/DL; POTASSIUM SERUM 4.1 MEQ/L (3.5-5.1); SODIUM LEVEL 141 MEQ/L (136-145); TOTAL PROTEIN 6.7 GM/DL (6.4-8.2); TRIGLYCERIDES LEVEL 100 MG/DL (<150)
[2020-12-26 14:23] LABS: HCG, SERUM QUALITATIVE NEGATIVE (NEGATIVE)
== END ==
LOC: M PLALAB 10:19
PROVIDERS: ATTEND Psychiatry & Neurology Psychiatry
DX: F33.1 Major depressive disorder, recurrent, moderate (principal); F60.3 Borderline personality disorder; F43.10 Post-traumatic stress disorder, unspecified; F41.8 Other specified anxiety disorders; F90.2 Attention-deficit hyperactivity disorder, combined type

== ENCOUNTER → 2021-03-10 | Outpatient (REF) | payer BC | LOC: M LAB 21:31 | PROVIDERS: ATTEND Physician Assistant Medical | DX: B00.9 Herpesviral infection, unspecified (principal) ==

== ENCOUNTER → 2021-11-06 | Outpatient (REF) | payer BC ==
[2021-11-06 14:27] LABS: ALBUMIN 3.4 GM/DL (3.2-5.2); ALT/SGPT 55 U/L (12-78); BILIRUBIN,TOTAL 0.2 MG/DL (0.2-1.0); BLOOD UREA NITROGEN 8 MG/DL (7-18); CALCIUM LEVEL 9.1 MG/DL (8.5-10.1); CARBON DIOXIDE LEVEL 26 MEQ/L (21-32); CHLORIDE LEVEL 108 MEQ/L (98-107); CREATININE FOR GFR 0.64 MG/DL (0.55-1.30); FREE T4 1.16 NG/DL (0.76-1.46); GLOMERULAR FILTRATION RATE > 60.0 (>60); GLUCOSE, FASTING 91 MG/DL (70-100); POTASSIUM SERUM 4.4 MEQ/L (3.5-5.1); SODIUM LEVEL 140 MEQ/L (136-145); TOTAL PROTEIN 6.7 GM/DL (6.4-8.2)
[2021-11-06 15:15] LABS: PROLACTIN 10.5 NG/ML
== END ==
LOC: M SFHCADAM 09:44
PROVIDERS: ATTEND Family Medicine
DX: N64.52 Nipple discharge (principal); N64.4 Mastodynia

== ENCOUNTER → 2021-11-28 | Outpatient (CLI) | payer MEDICAID ==
[~2021-11-28] MED LIST changes: +ABIL1TAB13 PO; +ATIV1TAB7 PO; +METH54TA5 PO; +PRAZ1CAP PO; +ZOLO100T PO
== END ==
LOC: M WHC 14:38
PROVIDERS: ATTEND Family Medicine
DX: N64.52 Nipple discharge (principal); N64.4 Mastodynia
CPT/HCPCS: 77066; G0279

== ENCOUNTER 2023-02-02 12:51 | Emergency (ER) | payer OTHER, BC ==
[~2023-02-02] VITALS: Ht 167.6 cm; Wt 108.0 kg
[2023-02-02 14:17] LABS: HEMATOCRIT 38.2 % (36.0-47.0); HEMOGLOBIN 12.7 g/dl (12.0-15.5); MEAN CORPUSCULAR HEMOGLOBIN 27.5 pg (27.0-33.0); MEAN CORPUSCULAR HGB CONC 33.2 g/dl (32.0-36.5); MEAN CORPUSCULAR VOLUME 82.9 fl (80.0-96.0); PLATELET COUNT, AUTOMATED 248 10^3/uL (150-450); RED BLOOD COUNT 4.61 10^6/uL (4.00-5.40); WHITE BLOOD COUNT 11.5 10^3/uL (4.0-10.0)
[2023-02-02 14:38] LABS: ETHYL ALCOHOL (ETHANOL) < 0.003 % (0.000-0.010)
[2023-02-02 14:39] LABS: ACETAMINOPHEN LEVEL < 2.0 UG/ML (10.0-20.0)
[2023-02-02 14:42] LABS: AMPHETAMINES LEVEL URINE NEGATIVE (NEGATIVE); BARBITURATES URINE NEGATIVE (NEGATIVE); BENZODIAZEPINES URINE NEGATIVE (NEGATIVE); CANNABINOIDS URINE NEGATIVE (NEGATIVE); COCAINE METABOLITE URINE NEGATIVE (NEGATIVE); METHADONE URINE NEGATIVE (NEGATIVE); OPIATES URINE NEGATIVE (NEGATIVE); PHENCYCLIDINE URINE NEGATIVE (NEGATIVE)
[2023-02-02 14:46] LABS: ALBUMIN 3.7 G/DL (3.2-5.2); ALKALINE PHOSPHATASE 70 U/L (46-116); ALT/SGPT 24 U/L (7.0-40); AST/SGOT 16 U/L (<34); BILIRUBIN,DIRECT 0.1 MG/DL (<0.4); BILIRUBIN,TOTAL 0.3 MG/DL (0.3-1.2); BLOOD UREA NITROGEN 7 MG/DL (9-23); CALCIUM LEVEL 9.2 MG/DL (8.5-10.1); CARBON DIOXIDE LEVEL 25 MMOL/L (20-31); CHLORIDE LEVEL 109 MMOL/L (98-107); CREATININE FOR GFR 0.64 MG/DL (0.55-1.30); GLOMERULAR FILTRATION RATE > 60.0 (>60); GLUCOSE, FASTING 88 MG/DL (60-100); POTASSIUM SERUM 3.9 MMOL/L (3.5-5.1); SALICYLATE LEVEL < 3.0 MG/DL (<30); SODIUM LEVEL 140 MMOL/L (136-145); TOTAL PROTEIN 6.4 G/DL (5.7-8.2)
[2023-02-02 15:13] LABS: HCG, SERUM QUALITATIVE NEGATIVE (NEGATIVE)
[2023-02-02] MEDS ORDERED: LORazepam 0.5 MG TAB PO ONE (18:25)
[2023-02-02 20:23] LABS: HEMATOCRIT 36.3 % (36.0-47.0); HEMOGLOBIN 11.8 g/dl (12.0-15.5); MEAN CORPUSCULAR HEMOGLOBIN 26.9 pg (27.0-33.0); MEAN CORPUSCULAR HGB CONC 32.5 g/dl (32.0-36.5); MEAN CORPUSCULAR VOLUME 82.7 fl (80.0-96.0); PLATELET COUNT, AUTOMATED 233 10^3/uL (150-450); RED BLOOD COUNT 4.39 10^6/uL (4.00-5.40); WHITE BLOOD COUNT 10.8 10^3/uL (4.0-10.0)
[2023-02-02 20:47] LABS: ETHYL ALCOHOL (ETHANOL) < 0.003 % (0.000-0.010)
[2023-02-02 20:49] LABS: ACETAMINOPHEN LEVEL < 2.0 UG/ML (10.0-20.0); SALICYLATE LEVEL < 3.0 MG/DL (<30)
[2023-02-02 20:53] LABS: THYROID STIMULATING HORMONE 1.379 uIU/ML (0.55-4.78)
[2023-02-02 20:55] LABS: ALBUMIN 3.4 G/DL (3.2-5.2); ALKALINE PHOSPHATASE 66 U/L (46-116); ALT/SGPT 23 U/L (7.0-40); AST/SGOT 11 U/L (<34); BILIRUBIN,DIRECT 0.1 MG/DL (<0.4); BILIRUBIN,TOTAL 0.3 MG/DL (0.3-1.2); BLOOD UREA NITROGEN 6 MG/DL (9-23); CALCIUM LEVEL 8.9 MG/DL (8.5-10.1); CARBON DIOXIDE LEVEL 22 MMOL/L (20-31); CHLORIDE LEVEL 111 MMOL/L (98-107); CREATININE FOR GFR 0.58 MG/DL (0.55-1.30); GLOMERULAR FILTRATION RATE > 60.0 (>60); GLUCOSE, FASTING 111 MG/DL (60-100); SODIUM LEVEL 140 MMOL/L (136-145); TOTAL PROTEIN 5.9 G/DL (5.7-8.2)
[2023-02-02] MEDS ORDERED: HOME MED LIST COMPLETE! XX SCH (21:30)
[2023-02-02 22:35] LABS: AMPHETAMINES LEVEL URINE NEGATIVE (NEGATIVE); BARBITURATES URINE NEGATIVE (NEGATIVE); BENZODIAZEPINES URINE NEGATIVE (NEGATIVE); CANNABINOIDS URINE NEGATIVE (NEGATIVE); COCAINE METABOLITE URINE NEGATIVE (NEGATIVE); METHADONE URINE NEGATIVE (NEGATIVE); OPIATES URINE NEGATIVE (NEGATIVE); PHENCYCLIDINE URINE NEGATIVE (NEGATIVE)
[2023-02-03] MEDS ORDERED: ACETAMINOPHEN 500 MG TAB PO PRN (07:55)
[2023-02-03] MEDS: NICOTINE 21MG/24HR 1 EA TRANSDERMAL TD SCH (09:00)
[2023-02-03] MEDS ORDERED: traZODone 50 MG TAB PO PRN (11:45)
[2023-02-03] MEDS ORDERED: diphenhydrAMINE 25MG CAP PO PRN (11:45)
[2023-02-03] MEDS ORDERED: OLANZapine ORAL DISINTEGRATING TAB 5MG PO PRN (11:45)
[2023-02-03] MEDS: LORazepam 2 MG TAB PO PRN (13:45)
[2023-02-04] MEDS ORDERED: ACETAMINOPHEN TAB 650MG DOSE (2X325MG) PO ONE ×2 (02:55→14:00)
[2023-02-04] MEDS: LORazepam 2 MG TAB PO PRN (04:19)
[2023-02-04 04:31] VITALS: BP 151/71
[2023-02-04] MEDS: NICOTINE 21MG/24HR 1 EA TRANSDERMAL TD SCH (09:00)
== END 2023-02-04 15:37 | disposition home or self-care (01) ==
LOC: M ED 12:51 → CANBEDREQ 17:18 → M ED INP 02-03 11:44 → UNDOADMIN 02-03 11:44 → M ED 02-04 15:37
DX: F29 Unspecified psychosis not due to a substance or known physiological condition (principal); F43.10 Post-traumatic stress disorder, unspecified; F90.9 Attention-deficit hyperactivity disorder, unspecified type

== ENCOUNTER 2023-02-18 14:00 | Emergency (ER) | payer BC, OTHER ==
[~2023-02-18] VITALS: Ht 167.6 cm; Wt 108.0 kg
[2023-02-18] MEDS ORDERED: OLANZapine INTRAMUSCULAR 10MG VIAL IM ONE (14:15)
[2023-02-18] MEDS ORDERED: LIDOCAINE W/EPINEPHRINE 1% 20ML VIAL SC ONE (14:20)
[2023-02-18] MEDS ORDERED: BOOSTRIX/ADACEL VACCINE (DIPHTH/PERTUSS/ACELL/TETANUS) 0.5ML SYR IM.IMMUN ONE (14:20)
[2023-02-18 14:32] LABS: HEMOGLOBIN 12.8 g/dl (12.0-15.5); MEAN CORPUSCULAR HEMOGLOBIN 27.1 pg (27.0-33.0); MEAN CORPUSCULAR VOLUME 84.7 fl (80.0-96.0); PLATELET COUNT, AUTOMATED 246 10^3/uL (150-450); RED BLOOD COUNT 4.72 10^6/uL (4.00-5.40); WHITE BLOOD COUNT 10.9 10^3/uL (4.0-10.0)
[2023-02-18 14:53] LABS: ETHYL ALCOHOL (ETHANOL) < 0.003 % (0.000-0.010)
[2023-02-18 14:54] LABS: ACETAMINOPHEN LEVEL < 2.0 UG/ML (10.0-20.0); SALICYLATE LEVEL < 3.0 MG/DL (<30)
[2023-02-18 14:55] LABS: ALBUMIN 3.7 G/DL (3.2-5.2); ALKALINE PHOSPHATASE 73 U/L (46-116); ALT/SGPT 35 U/L (7.0-40); AST/SGOT 22 U/L (<34); BILIRUBIN,DIRECT 0.1 MG/DL (<0.4); BILIRUBIN,TOTAL 0.4 MG/DL (0.3-1.2); BLOOD UREA NITROGEN 7 MG/DL (9-23); CALCIUM LEVEL 9.1 MG/DL (8.5-10.1); CARBON DIOXIDE LEVEL 23 MMOL/L (20-31); CHLORIDE LEVEL 109 MMOL/L (98-107); CREATININE FOR GFR 0.62 MG/DL (0.55-1.30); GLOMERULAR FILTRATION RATE > 60.0 (>60); GLUCOSE, FASTING 93 MG/DL (60-100); POTASSIUM SERUM 3.7 MMOL/L (3.5-5.1); SODIUM LEVEL 139 MMOL/L (136-145); TOTAL PROTEIN 6.5 G/DL (5.7-8.2)
[2023-02-18] MEDS ORDERED: HOME MED LIST COMPLETE! XX SCH (14:55)
[2023-02-18 15:17] LABS: HCG, SERUM QUALITATIVE NEGATIVE (NEGATIVE)
[2023-02-18 16:31] LABS: AMPHETAMINES LEVEL URINE NEGATIVE (NEGATIVE); BARBITURATES URINE NEGATIVE (NEGATIVE); BENZODIAZEPINES URINE NEGATIVE (NEGATIVE); COCAINE METABOLITE URINE NEGATIVE (NEGATIVE); METHADONE URINE NEGATIVE (NEGATIVE); OPIATES URINE NEGATIVE (NEGATIVE); PHENCYCLIDINE URINE NEGATIVE (NEGATIVE)
[2023-02-18 16:38] LABS: CANNABINOIDS URINE POSITIVE (NEGATIVE)
[2023-02-19] MEDS ORDERED: LORazepam 2 MG TAB PO STA (03:27)
[2023-02-19] MEDS ORDERED: ACETAMINOPHEN TAB 650MG DOSE (2X325MG) PO ONE (11:10)
[2023-02-19] MEDS: LORazepam 2 MG TAB PO PRN (19:11)
[2023-02-20] MEDS: LORazepam 2 MG TAB PO PRN (03:51)
[2023-02-20] MEDS ORDERED: OLANZapine ORAL DISINTEGRATING TAB 5MG PO ONE (08:40)
[2023-02-20] MEDS ORDERED: ACETAMINOPHEN TAB 650MG DOSE (2X325MG) PO ONE (08:40)
[2023-02-20 13:33] VITALS: BP 115/73
== END 2023-02-20 13:38 ==
LOC: M ED 14:00
DX: F33.3 Major depressive disorder, recurrent, severe with psychotic symptoms (principal); S51.022A Laceration with foreign body of left elbow, initial encounter; X58.XXXA Exposure to other specified factors, initial encounter; Y92.89 Other specified places as the place of occurrence of the external cause; Y93.89 Activity, other specified; Y99.8 Other external cause status; F17.200 Nicotine dependence, unspecified, uncomplicated
CPT/HCPCS: 12001; 70450; 72125; 73080; 80048; 80076; 80143; 80307; 81001; 82077; 84443; 84703; 85027; 87635; 90715; 93005; 96372; 99285; S0166

== ENCOUNTER 2023-12-07 12:22 | Outpatient (CLI) | payer OTHER ==
[~2023-12-07] VITALS: Ht 160 cm; Wt 118.6 kg
[~2023-12-07 12:22] MED LIST changes: -EFFE37.5 PO; +EFFE37.52 PO; +FAMO10TA50 PO
[2023-12-07 12:58] VITALS: BP 140/95
[2023-12-07] MEDS ORDERED: PRENTAB9 PO (13:50)
[2023-12-07] MEDS ORDERED: LOVE1INJ SC (13:51)
[2023-12-07] MEDS ORDERED: TUMS500C PO (13:51)
[2023-12-07] MEDS ORDERED: ECOT81TA5 PO (13:54)
[2023-12-07] MEDS ORDERED: HOME MED LIST COMPLETE! XX SCH (13:55)
[2023-12-07 14:10] VITALS: BP 123/82
[2023-12-07] MEDS ORDERED: BETAMETHASONE SOLUSPAN 6MG/ML 5ML VIAL IM ONE (14:20)
[2023-12-07 14:27] LABS: HEMATOCRIT 32.4 % (36.0-47.0); HEMOGLOBIN 10.8 g/dl (12.0-15.5); MEAN CORPUSCULAR HGB CONC 33.3 g/dl (32.0-36.5); MEAN CORPUSCULAR VOLUME 83.9 fl (80.0-96.0); PLATELET COUNT, AUTOMATED 218 10^3/uL (150-450); RED BLOOD COUNT 3.86 10^6/uL (4.00-5.40); WHITE BLOOD COUNT 9.9 10^3/uL (4.0-10.0)
[2023-12-07 14:41] LABS: TOTAL PROTEIN,RANDOM URINE 43.1 MG/DL (0.0-14.0)
[2023-12-07 14:46] LABS: CREATININE,RANDOM URINE 35.2 MG/DL
[2023-12-07 15:09] VITALS: BP 124/88
[2023-12-07 15:16] LABS: ALBUMIN 2.2 G/DL (3.2-5.2); ALKALINE PHOSPHATASE 146 U/L (46-116); ALT/SGPT 30 U/L (7.0-40); AST/SGOT 23 U/L (<34); BILIRUBIN,TOTAL 0.3 MG/DL (0.3-1.2); BLOOD UREA NITROGEN < 5 MG/DL (9-23); CALCIUM LEVEL 8.2 MG/DL (8.5-10.1); CARBON DIOXIDE LEVEL 22 MMOL/L (20-31); CHLORIDE LEVEL 110 MMOL/L (98-107); CREATININE FOR GFR 0.61 MG/DL (0.55-1.30); GLOMERULAR FILTRATION RATE > 60.0 (>60); GLUCOSE, FASTING 68 MG/DL (60-100); POTASSIUM SERUM 3.7 MMOL/L (3.5-5.1); SODIUM LEVEL 140 MMOL/L (136-145); TOTAL PROTEIN 5.5 G/DL (5.7-8.2)
[2023-12-08] MEDS ORDERED: ACET-897 PO (15:00)
[2023-12-08] MEDS ORDERED: BENA25CA4 PO (15:01)
== END 2023-12-07 15:51 | disposition home or self-care (01) ==
LOC: M LDO 12:22
PROVIDERS: ATTEND Obstetrics & Gynecology
DX: O36.5930 Maternal care for other known or suspected poor fetal growth, third trimester, not applicable or unspecified (principal); O30.043 Twin pregnancy, dichorionic/diamniotic, third trimester; Z3A.34 34 weeks gestation of pregnancy; Z88.0 Allergy status to penicillin; Z79.82 Long term (current) use of aspirin; Z79.899 Other long term (current) drug therapy
CPT/HCPCS: 36415; 59025; 76815; 80053; 82570; 84156; 85027; 96372; G0463; J0702

== ENCOUNTER 2023-12-08 14:46 | Outpatient (CLI) | payer OTHER ==
[~2023-12-08] VITALS: Ht 160 cm; Wt 119.1 kg
[~2023-12-08 14:46] MED LIST changes: +ECOT81TA5 PO; +LOVE1INJ SC; +PRENTAB9 PO; +TUMS500C PO
[2023-12-08] MEDS ORDERED: ACET-897 PO (15:00)
[2023-12-08] MEDS ORDERED: BENA25CA4 PO (15:01)
[2023-12-08] MEDS ORDERED: BETAMETHASONE SOLUSPAN 6MG/ML 5ML VIAL IM ONE (15:05)
[2023-12-08] MEDS ORDERED: HOME MED LIST COMPLETE! XX SCH (15:05)
[2023-12-08 15:21] VITALS: BP 134/67
== END 2023-12-08 15:23 | disposition home or self-care (01) ==
LOC: M LDO 14:46
PROVIDERS: ATTEND Advanced Practice Midwife
DX: O36.5930 Maternal care for other known or suspected poor fetal growth, third trimester, not applicable or unspecified (principal); O30.043 Twin pregnancy, dichorionic/diamniotic, third trimester; Z3A.34 34 weeks gestation of pregnancy; Z88.0 Allergy status to penicillin; Z79.82 Long term (current) use of aspirin; Z79.899 Other long term (current) drug therapy
CPT/HCPCS: 59025; 96372; G0463; J0702

== ENCOUNTER 2023-12-10 14:32 | Inpatient (IN) | payer OTHER ==
[~2023-12-10] VITALS: Ht 160 cm; Wt 120.7 kg
[2023-12-10] VITALS (11 sets, daily range): BP systolic 122–193; BP diastolic 69–102; TEMP 97.1–97.5; O2SAT 97–99
[~2023-12-10 14:32] MED LIST changes: +ACET-897 PO; +BENA25CA4 PO
[2023-12-10] MEDS ORDERED: UNIS25TA5 PO (14:53)
[2023-12-10 15:17] LABS: HEMATOCRIT 29.7 % (36.0-47.0); HEMOGLOBIN 10.1 g/dl (12.0-15.5); MEAN CORPUSCULAR HEMOGLOBIN 28.3 pg (27.0-33.0); MEAN CORPUSCULAR VOLUME 83.2 fl (80.0-96.0); PLATELET COUNT, AUTOMATED 223 10^3/uL (150-450); RED BLOOD COUNT 3.57 10^6/uL (4.00-5.40); WHITE BLOOD COUNT 10.8 10^3/uL (4.0-10.0)
[2023-12-10 15:44] LABS: ALBUMIN 2.1 G/DL (3.2-5.2); ALKALINE PHOSPHATASE 124 U/L (46-116); ALT/SGPT 48 U/L (7.0-40); AST/SGOT 36 U/L (<34); BILIRUBIN,TOTAL 0.3 MG/DL (0.3-1.2); BLOOD UREA NITROGEN 7 MG/DL (9-23); CALCIUM LEVEL 7.9 MG/DL (8.5-10.1); CARBON DIOXIDE LEVEL 23 MMOL/L (20-31); CHLORIDE LEVEL 108 MMOL/L (98-107); CREATININE FOR GFR 0.61 MG/DL (0.55-1.30); GLOMERULAR FILTRATION RATE > 60.0 (>60); GLUCOSE, FASTING 81 MG/DL (60-100); POTASSIUM SERUM 3.7 MMOL/L (3.5-5.1); SODIUM LEVEL 139 MMOL/L (136-145); TOTAL PROTEIN 5.1 G/DL (5.7-8.2)
[2023-12-10] MEDS ORDERED: OXYTOCIN INJ 10UNITS/ML 1ML VIAL IM PRN (15:50)
[2023-12-10] MEDS ORDERED: LIDOCAINE 1% MDV 20ML VIAL INFIL PRN (15:50)
[2023-12-10] MEDS ORDERED: GENTAMICIN SULF 80MG/2ML VIAL IP ONE (15:50)
[2023-12-10] MEDS ORDERED: OXYTOCIN DRIP 30 UNITS in IV 1 EA IV PRN (15:50)
[2023-12-10] MEDS ORDERED: CARBOPROST TROMETHAMINE 250 MCG/ML AMP IM PRN (15:50)
[2023-12-10] MEDS ORDERED: TRANEXAMIC ACID INJection 1,000 MG in NS 100 ML IV PRN (15:50)
[2023-12-10] MEDS ORDERED: OXYTOCIN INJ 10UNITS/ML 1ML VIAL IV PRN (15:50)
[2023-12-10] MEDS ORDERED: METHYLERGONOVINE MALEATE 0.2MG/ML 1ML VIAL IM PRN (15:50)
[2023-12-10] MEDS ORDERED: NALBUPHINE HCL 1MG/0.1ML (100MG/10ML) MDV IV PRN (16:15)
[2023-12-10] MEDS ORDERED: ONDANSETRON 4MG 2ML VIAL IV PRN (16:15)
[2023-12-10] MEDS ORDERED: diphenhydrAMINE 50MG/ML VIAL IV PRN (16:15)
[2023-12-10] MEDS ORDERED: NALOXONE INJ 0.4MG/1ML VIAL IV PRN ×2 (16:15)
[2023-12-10] MEDS ORDERED: **NOTE PATIENT COMMENT** MISC XX SCH (16:15)
[2023-12-10] MEDS: SLF 3 ML SYR IV SCH (16:15)
[2023-12-10 16:21] LABS: CREATININE,RANDOM URINE 109.2 MG/DL
[2023-12-10 16:30] LABS: TOTAL PROTEIN,RANDOM URINE 150.2 MG/DL (0.0-14.0)
[2023-12-10] MEDS: LACTATED RINGER'S 1000 ML IV STA (16:43)
[2023-12-10] MEDS: METOCLOPRAMIDE INJ 10MG/2ML VIAL IV STA (16:56)
[2023-12-10] MEDS: CLINDAMYCIN 900 MG in IV 1 EA IV ONE (16:56)
[2023-12-10] MEDS: MAG Sulf (L&D) 4 GM/100 ML 4 GM in IV 1 EA IV ONE (17:33)
[2023-12-10] MEDS: MAG Sulf (OBGYN) 20GM/500ML 20,000 MG in IV 1 EA IV SCH (17:57)
[2023-12-10] MEDS: BICITRA 30ML SOLN UDC PO ONE (18:02)
[2023-12-10] MEDS: GENTAMICIN 300 MG in D5W 50 ML IV ONE (18:18)
[2023-12-10] MEDS ORDERED: MORPHINE PRES-FREE INJ 10 MG/10 ML VIAL As Ordered ONE (18:35)
[2023-12-10] MEDS ORDERED: ePHEDrine SULFATE 25 MG/5 ML(5MG/ML) SYRINGE As Ordered ONE (18:39)
[2023-12-10] MEDS ORDERED: ONDANSETRON 4MG 2ML VIAL As Ordered ONE (18:40)
[2023-12-10] MEDS ORDERED: KETOROLAC 60MG 2ML VIAL As Ordered ONE (18:40)
[2023-12-10] MEDS ORDERED: ACETAMINOPHEN 1000MG 100ML IV BAG As Ordered ONE (18:40)
[2023-12-10] MEDS ORDERED: OXYTOCIN 30UNITS IN 0.9% NaCl 500ML IV BAG As Ordered ONE (18:40)
[2023-12-10] MEDS ORDERED: TRANEXAMIC ACID 100 MG/ML 10ML VIAL As Ordered ONE (18:46)
[2023-12-10] MEDS ORDERED: MEPERIDINE 25 MG/ML 1ML VIAL IV PRN (19:00)
[2023-12-10] MEDS ORDERED: MORPHINE 2 MG/ML 1ML VIAL IV PRN ×2 (19:00→19:40)
[2023-12-10 19:13] LABS: CORD GAS ABE A -3.5; CORD GAS ABE V -2.1; CORD GAS HCO3 A 23.7 MMOL/L; CORD GAS HCO3 V 23.6 MMOL/L; CORD GAS O2 SAT A 40.9 %; CORD GAS O2 SAT V 74.7 %; CORD GAS PCO2 V 43.8 mmHg; CORD GAS PH A 7.276 UNITS; CORD GAS PH V 7.349 UNITS; CORD GAS PO2 A 19.1 mmHg; CORD GAS PO2 V 30.8 mmHg; CORD GAS SBC A 20.4 MMOL/L; CORD GAS SBC V 22.2 MMOL/L; CORD GAS TCO2 A 25.3 MMOL/L; CORD GAS TCO2 V 24.9 MMOL/L
[2023-12-10 19:16] LABS: CORD GAS ABE A -2.8; CORD GAS ABE V -3.6; CORD GAS HCO3 A 24.9 MMOL/L; CORD GAS HCO3 V 22.4 MMOL/L; CORD GAS O2 SAT A 71.1 %; CORD GAS O2 SAT V 80.7 %; CORD GAS PCO2 A 54.8 mmHg; CORD GAS PCO2 V 43.8 mmHg; CORD GAS PH A 7.275 UNITS; CORD GAS PH V 7.327 UNITS; CORD GAS PO2 A 31.7 mmHg; CORD GAS PO2 V 35.4 mmHg; CORD GAS SBC A 21.5 MMOL/L; CORD GAS SBC V 21.1 MMOL/L; CORD GAS TCO2 A 26.6 MMOL/L; CORD GAS TCO2 V 23.8 MMOL/L
[2023-12-10] MEDS ORDERED: MOM 30ML SUSPENSION UDC PO PRN (19:40)
[2023-12-10] MEDS: OXYTOCIN DRIP 30 UNITS in IV 1 EA IV PRN (20:14)
[2023-12-10] MEDS: DOCUSATE SODIUM 100MG CAPSULE PO SCH (21:00)
[2023-12-10] MEDS: ONDANSETRON 4MG 2ML VIAL IV PRN (22:44)
[2023-12-11] VITALS (21 sets, daily range): BP systolic 114–152; BP diastolic 65–88; TEMP 96.9–98.4; O2SAT 94–100
[2023-12-11] MEDS: METOCLOPRAMIDE INJ 10MG/2ML VIAL IV PRN (00:19)
[2023-12-11] MEDS: KETOROLAC 30 MG/ML 1ML VIAL IV SCH (01:03)
[2023-12-11 03:41] LABS: ALBUMIN 1.7 G/DL (3.2-5.2); ALKALINE PHOSPHATASE 105 U/L (46-116); ALT/SGPT 44 U/L (7.0-40); AST/SGOT 31 U/L (<34); BILIRUBIN,TOTAL 0.2 MG/DL (0.3-1.2); BLOOD UREA NITROGEN 7 MG/DL (9-23); CALCIUM LEVEL 6.9 MG/DL (8.5-10.1); CARBON DIOXIDE LEVEL 24 MMOL/L (20-31); CHLORIDE LEVEL 106 MMOL/L (98-107); CREATININE FOR GFR 0.57 MG/DL (0.55-1.30); GLOMERULAR FILTRATION RATE > 60.0 (>60); GLUCOSE, FASTING 116 MG/DL (60-100); MAGNESIUM LEVEL 4.9 MG/DL (1.8-2.4); POTASSIUM SERUM 3.9 MMOL/L (3.5-5.1); SODIUM LEVEL 137 MMOL/L (136-145); TOTAL PROTEIN 4.3 G/DL (5.7-8.2)
[2023-12-11] MEDS: LR 1,000 ML IV SCH ×2 (06:01→08:20)
[2023-12-11 07:35] LABS: HEMATOCRIT 23.6 % (36.0-47.0); MEAN CORPUSCULAR HEMOGLOBIN 28.3 pg (27.0-33.0); MEAN CORPUSCULAR HGB CONC 33.5 g/dl (32.0-36.5); MEAN CORPUSCULAR VOLUME 84.6 fl (80.0-96.0); PLATELET COUNT, AUTOMATED 173 10^3/uL (150-450); RED BLOOD COUNT 2.79 10^6/uL (4.00-5.40); WHITE BLOOD COUNT 11.9 10^3/uL (4.0-10.0)
[2023-12-11 07:40] LABS: HEMOGLOBIN 7.9 g/dl (12.0-15.5)
[2023-12-11] MEDS: ENOXAPARIN 60MG/0.6ML SYRINGE (J1650 PER 10MG) SC SCH (08:19)
[2023-12-11] MEDS: PRENATAL VITAMINS CHEWABLE TABLET PO SCH (08:19)
[2023-12-11] MEDS: RHOGAM 300MCG (1500IU) INJ IM SCH (11:24)
[2023-12-11] MEDS: ACETAMINOPHEN 500 MG TAB PO PRN (11:26)
[2023-12-11] MEDS: IBUPROFEN 800 MG TAB PO SCH (21:05)
[2023-12-11] MEDS: oxyCODONE 5MG TAB PO PRN (23:02)
[2023-12-12 02:00] VITALS: BP 142/80; O2SAT 99
[2023-12-12 05:26] VITALS: TEMP 96.9
[2023-12-12] MEDS: oxyCODONE 5MG TAB PO PRN (05:26)
[2023-12-12 06:02] VITALS: BP 152/79; O2SAT 97
[2023-12-12] MEDS: MEASLES,MUMPS,RUBELLA VACCINE INJ (MMR-II) SC.IMMUN ONE (08:02)
[2023-12-12 10:00] VITALS: BP 136/83; O2SAT 96
[2023-12-12 18:00] VITALS: BP 153/93; O2SAT 100
[2023-12-12] MEDS: SIMETHICONE 80MG CHEW TAB PO PRN (18:40)
[2023-12-12 22:00] VITALS: BP 145/81
[2023-12-13 02:00] VITALS: BP 129/78
[2023-12-13 05:45] VITALS: BP 141/82
[2023-12-13 06:16] LABS: HEMATOCRIT 25.7 % (36.0-47.0); HEMOGLOBIN 8.1 g/dl (12.0-15.5); MEAN CORPUSCULAR HEMOGLOBIN 27.6 pg (27.0-33.0); MEAN CORPUSCULAR HGB CONC 31.5 g/dl (32.0-36.5); MEAN CORPUSCULAR VOLUME 87.4 fl (80.0-96.0); PLATELET COUNT, AUTOMATED 226 10^3/uL (150-450); RED BLOOD COUNT 2.94 10^6/uL (4.00-5.40); WHITE BLOOD COUNT 12.4 10^3/uL (4.0-10.0)
== END 2023-12-13 12:30 | disposition home or self-care (01) | DRG 773 ==
LOC: M LDO 14:32 → M LDI 16:03 → M OBS 21:30
PROVIDERS: ADMIT Obstetrics & Gynecology; ATTEND Obstetrics & Gynecology
PROC: 10D00Z1 Extraction of Products of Conception, Low, Open Approach (ICD-10-PCS; principal; 2023-12-10 17:30)
DX: O14.14 Severe pre-eclampsia complicating childbirth (principal); Z3A.35 35 weeks gestation of pregnancy; O30.043 Twin pregnancy, dichorionic/diamniotic, third trimester; O36.5932 Maternal care for other known or suspected poor fetal growth, third trimester, fetus 2; O32.1XX2 Maternal care for breech presentation, fetus 2; O99.214 Obesity complicating childbirth; E66.9 Obesity, unspecified; Z88.0 Allergy status to penicillin; Z79.82 Long term (current) use of aspirin; Z79.899 Other long term (current) drug therapy; Z86.718 Personal history of other venous thrombosis and embolism; Z79.01 Long term (current) use of anticoagulants; Z37.2 Twins, both liveborn

== ENCOUNTER → 2024-02-20 | Outpatient (REF) | payer OTHER ==
[~2024-02-20] MED LIST changes: +UNIS25TA5 PO
== END ==
LOC: M LAB 19:34
PROVIDERS: ATTEND Physician Assistant Medical
DX: R07.0 Pain in throat (principal)

== ENCOUNTER 2024-05-22 16:37 | Emergency (ER) | payer OTHER ==
[~2024-05-22] VITALS: Ht 160 cm; Wt 108.0 kg
[2024-05-22] MEDS ORDERED: DULO1CAP5 (17:01)
[2024-05-22] MEDS ORDERED: HYDR50TA70 (17:01)
[2024-05-22 18:44] LABS: BASO % 0.2 % (0.0-1.0); EOS # 0.1 10^3/uL (0.0-0.5); EOS % 0.3 % (0.0-3.0); HEMATOCRIT 38.6 % (36.0-47.0); HEMOGLOBIN 13.1 g/dl (12.0-15.5); LYMPH # 2.4 10^3/uL (1.5-5.0); LYMPH % 14.1 % (24.0-44.0); MEAN CORPUSCULAR HEMOGLOBIN 26.8 pg (27.0-33.0); MEAN CORPUSCULAR HGB CONC 33.9 g/dl (32.0-36.5); MEAN CORPUSCULAR VOLUME 78.9 fl (80.0-96.0); MONO # 0.8 10^3/uL (0.0-0.8); MONO % 4.6 % (2.0-8.0); NEUTROPHILS # 13.8 10^3/uL (1.5-8.5); NEUTROPHILS % 80.4 % (36.0-66.0); PLATELET COUNT, AUTOMATED 338 10^3/uL (150-450); RED BLOOD COUNT 4.89 10^6/uL (4.00-5.40); WHITE BLOOD COUNT 17.2 10^3/uL (4.0-10.0)
[2024-05-22] MEDS: NS 1,000 ML IV SCH (19:09)
[2024-05-22] MEDS: ONDANSETRON 4MG 2ML VIAL IV ONE (19:09)
[2024-05-22 19:11] LABS: LIPASE 24 U/L (12-53)
[2024-05-22 19:13] LABS: ALBUMIN 3.7 G/DL (3.2-5.2); ALKALINE PHOSPHATASE 101 U/L (46-116); ALT/SGPT 44 U/L (7.0-40); AST/SGOT 15 U/L (<34); BILIRUBIN,DIRECT 0.1 MG/DL (<0.4); BILIRUBIN,TOTAL 0.5 MG/DL (0.3-1.2); BLOOD UREA NITROGEN 10 MG/DL (9-23); CALCIUM LEVEL 9.8 MG/DL (8.5-10.1); CARBON DIOXIDE LEVEL 22 MMOL/L (20-31); CHLORIDE LEVEL 107 MMOL/L (98-107); CREATININE FOR GFR 0.59 MG/DL (0.55-1.30); GLOMERULAR FILTRATION RATE > 60.0 (>60); GLUCOSE, FASTING 123 MG/DL (60-100); POTASSIUM SERUM 4.1 MMOL/L (3.5-5.1); SODIUM LEVEL 137 MMOL/L (136-145); TOTAL PROTEIN 7.1 G/DL (5.7-8.2)
[2024-05-22 19:22] LABS: HCG, SERUM QUALITATIVE NEGATIVE (NEGATIVE)
[2024-05-22] MEDS ORDERED: ISOVUE-370 76% 100ML VIAL As Ordered ONE (20:41)
[2024-05-22 21:58] VITALS: BP 114/74; TEMP 98.5; O2SAT 98
== END 2024-05-22 22:00 | disposition home or self-care (01) ==
LOC: M ED 16:37 → EDBD 16:37 → M ED 22:00
DX: K42.9 Umbilical hernia without obstruction or gangrene (principal); R11.10 Vomiting, unspecified; F41.9 Anxiety disorder, unspecified; F32.A Depression, unspecified; Z88.0 Allergy status to penicillin; Z88.8 Allergy status to other drugs, medicaments and biological substances; Z79.1 Long term (current) use of non-steroidal anti-inflammatories (NSAID); Z79.899 Other long term (current) drug therapy
CPT/HCPCS: 74018; 74177; 80048; 80076; 83605; 83690; 84703; 85025; 96361; 96374; 99284; J2405; Q9967